=== PATIENT | male | born 1995 | race Caucasian/White ===

== ENCOUNTER 2017-07-22 21:08 | Emergency (ER) | payer SELFPAY ==
[~2017-07-22] VITALS: Ht 188 cm; Wt 70.3 kg
[2017-07-22 22:41] VITALS: BP 108/75
== END 2017-07-22 22:41 | disposition home or self-care (01) ==
LOC: ED 21:08
DX: S63.91XA Sprain of unspecified part of right wrist and hand, initial encounter (principal); W22.01XA Walked into wall, initial encounter; Y93.89 Activity, other specified; Y99.8 Other external cause status; Y92.89 Other specified places as the place of occurrence of the external cause
CPT/HCPCS: Q0092

== ENCOUNTER 2017-07-27 16:15 | Emergency (ER) | payer SELFPAY ==
[2017-07-27 17:29] VITALS: BP 121/74
== END 2017-07-27 17:29 | disposition home or self-care (01) ==
LOC: ED 16:15
DX: S63.91XD Sprain of unspecified part of right wrist and hand, subsequent encounter (principal); X58.XXXD Exposure to other specified factors, subsequent encounter

== ENCOUNTER 2018-11-18 22:48 | Emergency (ER) | payer OTHER ==
[~2018-11-18] VITALS: Ht 188 cm; Wt 74.8 kg
[2018-11-18 23:00] VITALS: Ht 188 cm; Wt 74.8 kg
[2018-11-18 23:31] LABS: UA SPECIFIC GRAVITY 1.015 (1.005-1.035); microscopic required? YES; urine erythrocyte TRACE (NEGATIVE)
[2018-11-19 01:23] VITALS: BP 106/78
== END 2018-11-19 01:23 | disposition home or self-care (01) ==
LOC: ED 22:48
PROVIDERS: Emergency Medicine
DX: N50.811 Right testicular pain (principal); N50.812 Left testicular pain; R19.7 Diarrhea, unspecified; R10.9 Unspecified abdominal pain; R50.9 Fever, unspecified; M54.9 Dorsalgia, unspecified; F17.210 Nicotine dependence, cigarettes, uncomplicated
CPT/HCPCS: 87491; 87591; Q0092